=== PATIENT | male | born 1970 | race Hispanic/Latino ===

== ENCOUNTER 2017-11-27 05:30 | Day surgery (SDC) | payer MEDICAID ==
[~2017-11-27] VITALS: Ht 170.2 cm; Wt 67.6 kg
[2017-11-27] MEDS ORDERED: SODIUM CHLORIDE 0.9% 1000ML 1,000 ML IV ONE (06:10)
[2017-11-27] MEDS ORDERED: FOLI1TAB15 PO (06:25)
[2017-11-27] MEDS ORDERED: THIA100T75 PO (06:25)
[2017-11-27] MEDS ORDERED: MIRT30TA6 PO (06:25)
[2017-11-27] MEDS ORDERED: DIVA-78 PO (06:25)
[2017-11-27 06:26] VITALS: BP 103/72
[2017-11-27] MEDS ORDERED: MIDAZOLAM HCL 1 MG/ML 2ML VIAL ONE (06:30)
[2017-11-27] MEDS ORDERED: MEPERIDINE-PF 50 MG/ML SYG ONE (06:30)
[2017-11-27 06:58] VITALS: BP 86/50
[2017-11-27 07:04] VITALS: BP 88/53
[2017-11-27 07:09] VITALS: BP 110/69
[2017-11-27 07:12] VITALS: BP 108/76
[2017-11-27 07:27] VITALS: BP 132/73
== END 2017-11-27 07:29 | disposition home or self-care (01) ==
LOC: DAH 05:30 → ENDO 05:30
PROVIDERS: ATTEND Internal Medicine Gastroenterology
DX: K29.50 Unspecified chronic gastritis without bleeding (principal); B96.81 Helicobacter pylori [H. pylori] as the cause of diseases classified elsewhere; K76.6 Portal hypertension; F32.9 Major depressive disorder, single episode, unspecified; F20.9 Schizophrenia, unspecified; Z79.899 Other long term (current) drug therapy; K70.9 Alcoholic liver disease, unspecified; F10.20 Alcohol dependence, uncomplicated
CPT/HCPCS: 36415; 43239; 88305; 88312; A4606; J2175; J2250; J7030; 99152; 99153

== ENCOUNTER 2021-10-16 20:20 | Inpatient (IN) | payer MEDICAID ==
[~2021-10-16] VITALS: Ht 152.4 cm; Wt 59.1 kg
[~2021-10-16 20:20] MED LIST: DIVA-78 PO; FOLI1TAB15 PO; MIRT-93 PO; THIA100T75 PO
[2021-10-16] MEDS ORDERED: PANTOPRAZOLE 40 MG/VIAL IVP ONE (20:30)
[2021-10-16] MEDS ORDERED: PANTOPRAZOLE 40MG INJ 80 MG in 0.9%NACL 100ML 100 ML IV SCH (20:30)
[2021-10-16] MEDS ORDERED: OCTREOTIDE ACETATE 100 MCG/ML AMP IVP ONE (20:30)
[2021-10-16] MEDS ORDERED: CEFTRIAXONE 1G VIAL 1 GM in 0.9%NACL 50ML 50 ML IV ONE (20:30)
[2021-10-16] MEDS ORDERED: ONDANSETRON 4MG INJ IVP ONE (20:30)
[2021-10-16 21:00] LABS: BASOPHILS % (AUTO) 0.6 % (0.0-5.0); EOSINOPHILS % (AUTO) 0.4 % (0.0-8.0); HEMATOCRIT 28.9 % (42-54); LYMPHOCYTES % (AUTO) 17.8 % (21.0-51.0); MEAN CORPUSCULAR HEMOGLOBIN 34.7 pg (27.0-33.0); MEAN CORPUSCULAR HGB CONC 36.3 g/dL (32.0-36.0); MEAN CORPUSCULAR VOLUME 95.4 fL (79-99); MONOCYTES % (AUTO) 8.3 % (3.0-13.0); NEUTROPHILS % (AUTO) 72.3 % (40.0-77.0); PLATELET COUNT (AUTO) 61 K/uL (130-400); RED BLOOD CELL COUNT(AUTO) 3.03 MIL/uL (4.50-6.20); RED CELL DISTRIBUTION WIDTH 14.6 % (11.0-15.5); WHITE BLOOD COUNT (AUTO) 6.7 K/uL (4.8-10.8)
[2021-10-16] MEDS ORDERED: CEFTRIAXONE 1G VIAL IVP ONE (21:00)
[2021-10-16 21:15] LABS: INR 1.65 (0.85-1.15); PROTHROMBIN TIME 17.2 SEC (9.6-11.6)
[2021-10-16 21:16] LABS: PARTIAL THROMBOPLASTIN TIME 36.7 SEC (26.3-35.5)
[2021-10-16 21:35] LABS: ALBUMIN 2.2 g/dL (3.5-5.0); BILIRUBIN,TOTAL 2.8 mg/dL (0.2-1.0); CREATININE 0.6 mg/dL (0.5-1.5); MAGNESIUM 1.7 mg/dL (1.80-2.40); PHOSPHORUS 1.9 mg/dL (2.5-4.9); TOTAL PROTEIN, SERUM 7.8 g/dL (6.0-8.3)
[2021-10-16] MEDS ORDERED: ONDANSETRON 4MG INJ IV PRN (22:00)
[2021-10-16] MEDS ORDERED: POTASSIUM CHLORIDE 20MEQ/100ML 100 ML IV PRN (22:30)
[2021-10-16] MEDS ORDERED: MAGNESIUM 2GM PREMIX 50ML 50 ML IV PRN (22:30)
[2021-10-16] MEDS ORDERED: LIDOCAINE HCL-MPF 1% 2ML VIAL IV PRN (22:30)
[2021-10-16] MEDS ORDERED: ZOSYN 3.375GM +NS 50ML IV SCH (22:30)
[2021-10-16] MEDS ORDERED: LORAZEPAM 2 MG/ML 1 ML VIAL IVP PRN (22:30)
[2021-10-16] MEDS ORDERED: PHARMACY COMMUNICATION MISC PRN (22:30)
[2021-10-16] MEDS ORDERED: ACAM333T7 PO (22:57)
[2021-10-16] MEDS ORDERED: BUSP10TA3 PO (22:57)
[2021-10-16] MEDS ORDERED: ESCI-8 PO (22:57)
[2021-10-16] MEDS ORDERED: INVEGA IM (22:57)
[2021-10-16] MEDS ORDERED: TRAZ-185 PO (22:57)
[2021-10-17 00:30] VITALS: BP 108/57
[2021-10-17 04:00] VITALS: BP 102/62
[2021-10-17 04:18] LABS: BASOPHILS % (AUTO) 0.5 % (0.0-5.0); EOSINOPHILS % (AUTO) 0.5 % (0.0-8.0); HEMATOCRIT 27.1 % (42-54); LYMPHOCYTES % (AUTO) 16.5 % (21.0-51.0); MEAN CORPUSCULAR HEMOGLOBIN 34.3 pg (27.0-33.0); MEAN CORPUSCULAR HGB CONC 36.2 g/dL (32.0-36.0); MEAN CORPUSCULAR VOLUME 94.8 fL (79-99); MONOCYTES % (AUTO) 9.2 % (3.0-13.0); NEUTROPHILS % (AUTO) 72.6 % (40.0-77.0); PLATELET COUNT (AUTO) 57 K/uL (130-400); RED BLOOD CELL COUNT(AUTO) 2.86 MIL/uL (4.50-6.20); RED CELL DISTRIBUTION WIDTH 14.9 % (11.0-15.5); WHITE BLOOD COUNT (AUTO) 5.8 K/uL (4.8-10.8)
[2021-10-17] MEDS: PANTOPRAZOLE 40MG INJ 80 MG in 0.9%NACL 100ML 100 ML IVP SCH ×2 (04:24→12:00)
[2021-10-17 04:32] LABS: CREATININE 0.6 mg/dL (0.5-1.5); PHOSPHORUS 2.9 mg/dL (2.5-4.9); POTASSIUM 3.3 mmol/L (3.5-5.1)
[2021-10-17] MEDS: POTASSIUM CHLORIDE 10% ELIXIR 20 MEQ/15 ML UDCUP PO PRN (04:37)
[2021-10-17 07:51] VITALS: BP 124/67
[2021-10-17] MEDS ORDERED: PANTOPRAZOLE 40 MG/VIAL IVP SCH (09:00)
[2021-10-17 11:21] VITALS: BP 133/66
[2021-10-17] MEDS ORDERED: COMPOUND IV MISC 1 EACH IVSOLN MISC PRN (12:00)
[2021-10-17 16:11] VITALS: BP 119/54
[2021-10-17] MEDS: M.V.I. IV [ADULT] 10 ML, FOLIC ACID 1 MG, THIAMINE HCL 100 MG in 0.9%NACL 1000ML 1,000 ML IV SCH (18:03)
[2021-10-17 20:00] VITALS: BP 147/80
[2021-10-18] VITALS (21 sets, daily range): BP systolic 102–163; BP diastolic 61–86
[2021-10-18] MEDS: PANTOPRAZOLE 40MG INJ 80 MG in 0.9%NACL 100ML 100 ML IVP SCH ×3 (00:42→23:08)
[2021-10-18] MEDS ORDERED: PROPOFOL 10 MG/ML 20ML VIAL IV ONE (09:14)
[2021-10-18] MEDS: M.V.I. IV [ADULT] 10 ML, FOLIC ACID 1 MG, THIAMINE HCL 100 MG in 0.9%NACL 1000ML 1,000 ML IV SCH (10:17)
[2021-10-18 10:38] LABS: HEMATOCRIT 27.6 % (42-54); MEAN CORPUSCULAR HEMOGLOBIN 35.2 pg (27.0-33.0); MEAN CORPUSCULAR HGB CONC 36.2 g/dL (32.0-36.0); MEAN CORPUSCULAR VOLUME 97.2 fL (79-99); RED BLOOD CELL COUNT(AUTO) 2.84 MIL/uL (4.50-6.20); RED CELL DISTRIBUTION WIDTH 15.1 % (11.0-15.5); WHITE BLOOD COUNT (AUTO) 5.5 K/uL (4.8-10.8)
[2021-10-18 10:46] LABS: CREATININE 0.6 mg/dL (0.5-1.5); POTASSIUM 3.4 mmol/L (3.5-5.1)
[2021-10-18] MEDS ORDERED: KETOROLAC 15MG/ML VIAL (15MG/ML) IM PRN (11:00)
[2021-10-18] MEDS: POTASSIUM CHLORIDE 10% ELIXIR 20 MEQ/15 ML UDCUP PO PRN (11:06)
[2021-10-18] MEDS: CEFTRIAXONE 1G VIAL IVP SCH (11:27)
[2021-10-18] MEDS: OCTREOTIDE ACETATE 1,000 MCG in DEXTROSE 5%-WATER 195 ML IV SCH (16:06)
[2021-10-18] MEDS ORDERED: KETOROLAC 15MG/ML VIAL (15MG/ML) IV PRN (17:00)
[2021-10-18] MEDS: KCL 20 MEQ ERTAB PO PRN (23:07)
[2021-10-19 02:32] VITALS: BP 132/82
[2021-10-19] MEDS: KCL 20 MEQ ERTAB PO PRN (02:44)
[2021-10-19 04:52] LABS: HEMATOCRIT 28.5 % (42-54); MEAN CORPUSCULAR HEMOGLOBIN 34.2 pg (27.0-33.0); MEAN CORPUSCULAR HGB CONC 35.8 g/dL (32.0-36.0); MEAN CORPUSCULAR VOLUME 95.6 fL (79-99); RED BLOOD CELL COUNT(AUTO) 2.98 MIL/uL (4.50-6.20); RED CELL DISTRIBUTION WIDTH 15.1 % (11.0-15.5); WHITE BLOOD COUNT (AUTO) 6.4 K/uL (4.8-10.8)
[2021-10-19 04:58] VITALS: BP 144/71
[2021-10-19 05:08] LABS: CREATININE 0.5 mg/dL (0.5-1.5); POTASSIUM 3.5 mmol/L (3.5-5.1)
[2021-10-19 08:00] VITALS: BP 110/80
[2021-10-19] MEDS: PANTOPRAZOLE 40MG INJ 80 MG in 0.9%NACL 100ML 100 ML IVP SCH ×2 (09:11→19:27)
[2021-10-19] MEDS: CEFTRIAXONE 1G VIAL IVP SCH (10:54)
[2021-10-19 12:00] VITALS: BP 118/63
[2021-10-19] MEDS: OCTREOTIDE ACETATE 1,000 MCG in DEXTROSE 5%-WATER 195 ML IV SCH (15:32)
[2021-10-19 16:00] VITALS: BP 118/71
[2021-10-19 20:51] VITALS: BP 135/85
[2021-10-20 00:07] VITALS: BP 134/76
[2021-10-20 04:10] LABS: HEMATOCRIT 28.5 % (42-54); MEAN CORPUSCULAR HEMOGLOBIN 34.7 pg (27.0-33.0); MEAN CORPUSCULAR HGB CONC 36.1 g/dL (32.0-36.0); NUCLEATED RED BLOOD CELLS 0.3 % (0.0-0.19); RED BLOOD CELL COUNT(AUTO) 2.97 MIL/uL (4.50-6.20); RED CELL DISTRIBUTION WIDTH 14.9 % (11.0-15.5); WHITE BLOOD COUNT (AUTO) 7.3 K/uL (4.8-10.8)
[2021-10-20 04:19] LABS: CREATININE 0.5 mg/dL (0.5-1.5); POTASSIUM 3.5 mmol/L (3.5-5.1)
[2021-10-20 04:29] VITALS: BP 120/67
[2021-10-20 07:00] VITALS: BP 101/56
[2021-10-20] MEDS: PANTOPRAZOLE 40MG INJ 80 MG in 0.9%NACL 100ML 100 ML IVP SCH (07:00)
[2021-10-20] MEDS ORDERED: PANT40TA PO (09:02)
[2021-10-20] MEDS: CEFTRIAXONE 1G VIAL IVP SCH (10:52)
[2021-10-20 11:00] VITALS: BP 123/73
[2021-10-20] MEDS ORDERED: LACTULOSE 20 GM/30 ML UDCUP PO SCH (11:00)
[2021-10-20] MEDS: KCL 20 MEQ ERTAB PO PRN (12:00)
[2021-10-20 13:26] LABS: POTASSIUM TIMED URINE 19.68; URINE K 24HR CALCULATION 8.2
== END 2021-10-20 12:35 | disposition home or self-care (01) | DRG 280 ==
LOC: EDH 20:20 → EDHIP 20:21 → UNDOADMIN 21:56 → 4DH 23:45 → 4BH 10-19 17:37
PROVIDERS: ADMIT Internal Medicine; ATTEND Internal Medicine
PROC: 06L38CZ Occlusion of Esophageal Vein with Extraluminal Device, Via Natural or Artificial Opening Endoscopic (ICD-10-PCS; principal; 2021-10-18)
DX: K70.31 Alcoholic cirrhosis of liver with ascites (principal); I85.11 Secondary esophageal varices with bleeding; E43 Unspecified severe protein-calorie malnutrition; D69.6 Thrombocytopenia, unspecified; E83.51 Hypocalcemia; E87.1 Hypo-osmolality and hyponatremia; D62 Acute posthemorrhagic anemia; K76.6 Portal hypertension; I85.10 Secondary esophageal varices without bleeding; E83.42 Hypomagnesemia; R65.10 Systemic inflammatory response syndrome (SIRS) of non-infectious origin without acute organ dysfunction; E87.6 Hypokalemia; D64.9 Anemia, unspecified; Y90.6 Blood alcohol level of 120-199 mg/100 ml; Z68.25 Body mass index [BMI] 25.0-25.9, adult; F17.210 Nicotine dependence, cigarettes, uncomplicated; F12.90 Cannabis use, unspecified, uncomplicated; I10 Essential (primary) hypertension; F20.9 Schizophrenia, unspecified; K44.9 Diaphragmatic hernia without obstruction or gangrene; K31.89 Other diseases of stomach and duodenum; K02.9 Dental caries, unspecified; E11.9 Type 2 diabetes mellitus without complications; K21.9 Gastro-esophageal reflux disease without esophagitis; Z83.3 Family history of diabetes mellitus; Z80.1 Family history of malignant neoplasm of trachea, bronchus and lung; Z82.49 Family history of ischemic heart disease and other diseases of the circulatory system
CPT/HCPCS: 36415; 43244; 71045; 76705; 80048; 80053; 82140; 82270; 82340; 82550; 82607; 83605; 83735; 83880; 84100; 84156; 84166; 84484; 85025; 85027; 85610; 85730; 86325; 86850; 86900; 86901; 87040; 87635; 93005; 99291; C9113; G0378; J0696; J1885; J2354; J2405; J2543; J2704; J3411; J3475; J3480; J3490; J7030; J7060

== ENCOUNTER 2022-12-04 04:27 | Observation (INO) | payer MEDICAID ==
[2022-12-04] MEDS ORDERED: 0.9%NACL 1000ML 1,000 ML IV SCH (05:00)
[2022-12-04 05:10] LABS: BASOPHILS % (AUTO) 0.9 % (0.0-5.0); EOSINOPHILS % (AUTO) 3.4 % (0.0-8.0); HEMATOCRIT 35.1 % (42-54); LYMPHOCYTES % (AUTO) 29.8 % (21.0-51.0); MEAN CORPUSCULAR HEMOGLOBIN 35.7 pg (27.0-33.0); MEAN CORPUSCULAR HGB CONC 37.9 g/dL (32.0-36.0); MEAN CORPUSCULAR VOLUME 94.1 fL (79-99); MONOCYTES % (AUTO) 8.9 % (3.0-13.0); NEUTROPHILS % (AUTO) 56.8 % (40.0-77.0); PLATELET COUNT (AUTO) 94 K/uL (130-400); RED BLOOD CELL COUNT(AUTO) 3.73 MIL/uL (4.50-6.20); RED CELL DISTRIBUTION WIDTH 16.7 % (11.0-15.5); WHITE BLOOD COUNT (AUTO) 4.5 K/uL (4.8-10.8)
[2022-12-04 05:11] LABS: APPEARANCE,URINE CLEAR (CLEAR); BILIRUBIN,URINE NEGATIVE (NEGATIVE); COLOR,URINE LIGHT-YELLOW (YELLOW); GLUCOSE, URINE (UA) 150 mg/dL (NEGATIVE); KETONES,URINE NEGATIVE (NEGATIVE); LEUKOCYTE ESTERASE ,URINE 25 Leu/uL (NEGATIVE); NITRATE,URINE NEGATIVE (NEGATIVE); OCCULT BLOOD,URINE NEGATIVE (NEGATIVE); PROTEIN,URINE NEGATIVE (NEGATIVE); UROBILINOGEN,URINE 0.2 mg/dL (0.2-1.0)
[2022-12-04 05:15] LABS: BACTERIA,URINE MOD /HPF (None Seen); MUCUS,URINE RARE LPF (None Seen); RBC,URINE 0-1 /HPF (0-1)
[2022-12-04 05:28] LABS: ALBUMIN 3.1 g/dL (3.5-5.0); CREATININE 0.9 mg/dL (0.5-1.5); POTASSIUM 3.7 mmol/L (3.5-5.1); TOTAL PROTEIN, SERUM 8.2 g/dL (6.0-8.3)
[2022-12-04 05:38] LABS: B-TYPE NATRIURETIC PEPTIDE < 5 pg/mL (0-100)
[2022-12-04 06:34] LABS: AMPHET/METH SCREEN,URINE NEGATIVE (NEGATIVE); BARBITURATE SCREEN, URINE NEGATIVE (NEGATIVE); BENZODIAZEPINES SCREEN,URINE NEGATIVE (NEGATIVE); CANNABINOID SCREEN,URINE NEGATIVE (NEGATIVE); COCAINE SCREEN,URINE NEGATIVE (NEGATIVE); OPIATE SCREEN,URINE NEGATIVE (NEGATIVE); PHENCYCLIDINE SCREEN,URINE NEGATIVE (NEGATIVE)
[2022-12-04 07:39] LABS: APPEARANCE,URINE CLEAR (CLEAR); BILIRUBIN,URINE NEGATIVE (NEGATIVE); COLOR,URINE LIGHT-YELLOW (YELLOW); GLUCOSE, URINE (UA) 150 mg/dL (NEGATIVE); KETONES,URINE NEGATIVE (NEGATIVE); LEUKOCYTE ESTERASE ,URINE 25 Leu/uL (NEGATIVE); NITRATE,URINE 2+ (NEGATIVE); OCCULT BLOOD,URINE NEGATIVE (NEGATIVE); PROTEIN,URINE NEGATIVE (NEGATIVE); UROBILINOGEN,URINE 0.2 mg/dL (0.2-1.0)
[2022-12-04 07:52] LABS: BACTERIA,URINE MANY /HPF (None Seen); MUCUS,URINE RARE LPF (None Seen); RBC,URINE 0-1 /HPF (0-1)
[2022-12-04] MEDS ORDERED: ONDANSETRON 4MG INJ IVP PRN (08:00)
[2022-12-04] MEDS ORDERED: MAGNESIUM 2GM PREMIX 50ML 50 ML IV PRN (08:00)
[2022-12-04] MEDS ORDERED: POTASSIUM CHLORIDE 10% ELIXIR 20 MEQ/15 ML UDCUP PO PRN (08:00)
[2022-12-04] MEDS ORDERED: GLUCAGON 1MG KIT 1 MG ML IM PRN (08:00)
[2022-12-04] MEDS ORDERED: DEXTROSE 50%-WATER 50 ML DISP.SYRIN IV PRN (08:00)
[2022-12-04] MEDS ORDERED: LACTULOSE 20 GM/30 ML UDCUP PO PRN (08:00)
[2022-12-04] MEDS ORDERED: POTASSIUM CHLORIDE 20MEQ/100ML 100 ML IV PRN (08:00)
[2022-12-04] MEDS: PANTOPRAZOLE 40 MG TAB DR PO SCH ×2 (09:17→21:22)
[2022-12-04] MEDS: ACETAMINOPHEN 325 MG TAB PO PRN (09:18)
[2022-12-04] MEDS: INSULIN HUMULIN R 100 UNIT/ML 3ML SQ SCH ×3 (11:30→21:00)
[2022-12-04 17:46] LABS: HEMOGLOBIN A1C 6.6 % (4.0-6.0)
[2022-12-04 17:48] VITALS: BP 147/73
[2022-12-04] MEDS ORDERED: CARB15DR OP (19:23)
[2022-12-04] MEDS ORDERED: MEDR2.5T PO (19:23)
[2022-12-04] MEDS ORDERED: SPIR50TA5 PO (19:23)
[2022-12-04] MEDS ORDERED: LACT10SO95 PO (19:23)
[2022-12-04] MEDS ORDERED: TRAZ-185 PO (19:23)
[2022-12-04] MEDS ORDERED: ESCI20TA38 PO (19:23)
[2022-12-04] MEDS ORDERED: PERIDEX MM (19:23)
[2022-12-04 20:43] VITALS: BP 142/75
[2022-12-05] VITALS (7 sets, daily range): BP systolic 104–137; BP diastolic 53–73
[2022-12-05 05:20] LABS: BASOPHILS % (AUTO) 0.9 % (0.0-5.0); EOSINOPHILS % (AUTO) 3.8 % (0.0-8.0); HEMATOCRIT 36.5 % (42-54); LYMPHOCYTES % (AUTO) 40.8 % (21.0-51.0); MEAN CORPUSCULAR HEMOGLOBIN 32.4 pg (27.0-33.0); MEAN CORPUSCULAR HGB CONC 35.3 g/dL (32.0-36.0); MEAN CORPUSCULAR VOLUME 91.7 fL (79-99); MONOCYTES % (AUTO) 9.1 % (3.0-13.0); NEUTROPHILS % (AUTO) 45.2 % (40.0-77.0); PLATELET COUNT (AUTO) 111 K/uL (130-400); RED BLOOD CELL COUNT(AUTO) 3.98 MIL/uL (4.50-6.20); RED CELL DISTRIBUTION WIDTH 16.8 % (11.0-15.5); WHITE BLOOD COUNT (AUTO) 4.5 K/uL (4.8-10.8)
[2022-12-05 05:36] LABS: BILIRUBIN,DIRECT 0.9 mg/dL (0.0-0.3); CREATININE 0.9 mg/dL (0.5-1.5); POTASSIUM 3.7 mmol/L (3.5-5.1); TOTAL PROTEIN, SERUM 7.7 g/dL (6.0-8.3)
[2022-12-05] MEDS: INSULIN HUMULIN R 100 UNIT/ML 3ML SQ SCH ×4 (06:32→21:00)
[2022-12-05] MEDS: PANTOPRAZOLE 40 MG TAB DR PO SCH ×2 (08:55→21:32)
[2022-12-05] MEDS: ACETAMINOPHEN 325 MG TAB PO PRN (15:54)
[2022-12-06 04:23] LABS: BASOPHILS % (AUTO) 0.7 % (0.0-5.0); EOSINOPHILS % (AUTO) 3.9 % (0.0-8.0); HEMATOCRIT 36.1 % (42-54); LYMPHOCYTES % (AUTO) 37.7 % (21.0-51.0); MEAN CORPUSCULAR HEMOGLOBIN 32.5 pg (27.0-33.0); MEAN CORPUSCULAR HGB CONC 34.6 g/dL (32.0-36.0); MEAN CORPUSCULAR VOLUME 93.8 fL (79-99); MONOCYTES % (AUTO) 9.8 % (3.0-13.0); NEUTROPHILS % (AUTO) 47.7 % (40.0-77.0); PLATELET COUNT (AUTO) 90 K/uL (130-400); RED BLOOD CELL COUNT(AUTO) 3.85 MIL/uL (4.50-6.20); RED CELL DISTRIBUTION WIDTH 16.4 % (11.0-15.5); WHITE BLOOD COUNT (AUTO) 4.1 K/uL (4.8-10.8)
[2022-12-06 04:44] VITALS: BP 124/74
[2022-12-06 04:49] LABS: ALBUMIN 2.9 g/dL (3.5-5.0); CREATININE 1.1 mg/dL (0.5-1.5); POTASSIUM 3.5 mmol/L (3.5-5.1); TOTAL PROTEIN, SERUM 7.4 g/dL (6.0-8.3)
[2022-12-06] MEDS: INSULIN HUMULIN R 100 UNIT/ML 3ML SQ SCH ×3 (06:24→16:30)
[2022-12-06] MEDS: KCL 20 MEQ ERTAB PO PRN ×2 (07:57→13:07)
[2022-12-06] MEDS: PANTOPRAZOLE 40 MG TAB DR PO SCH (07:57)
[2022-12-06 08:43] VITALS: BP 112/65
[2022-12-06] MEDS ORDERED: CEPHALEXIN 500 MG CAPSULE PO SCH ×2 (11:00)
[2022-12-06 12:02] VITALS: BP 111/68
[2022-12-06] MEDS ORDERED: LACTULOSE 20 GM/30 ML UDCUP PO SCH (14:00)
[2022-12-06 16:00] VITALS: BP 109/67
== END 2022-12-06 17:05 ==
LOC: EDH 04:27 → INTOOBSV 04:28 → EDHIP 04:28 → 3DH 17:42
PROVIDERS: ADMIT Hospitalist; ATTEND Hospitalist
DX: G93.41 Metabolic encephalopathy (principal); K76.82 Hepatic encephalopathy; I85.00 Esophageal varices without bleeding; E44.1 Mild protein-calorie malnutrition; K70.30 Alcoholic cirrhosis of liver without ascites; E11.65 Type 2 diabetes mellitus with hyperglycemia; I10 Essential (primary) hypertension; F20.9 Schizophrenia, unspecified; E87.1 Hypo-osmolality and hyponatremia; E72.20 Disorder of urea cycle metabolism, unspecified; F20.0 Paranoid schizophrenia; F10.10 Alcohol abuse, uncomplicated; N39.0 Urinary tract infection, site not specified; B96.20 Unspecified Escherichia coli [E. coli] as the cause of diseases classified elsewhere; K76.6 Portal hypertension; Z68.26 Body mass index [BMI] 26.0-26.9, adult; Z86.19 Personal history of other infectious and parasitic diseases; Z79.899 Other long term (current) drug therapy; Z98.890 Other specified postprocedural states
CPT/HCPCS: 99285; 83036; 82150; 82550; 84484; 80053 ×2; 83880; 80305; 82140 ×3; 85025 ×3; 87077; 87088; 87186; 82948 ×2; 87797; 87486; 81001 ×2; 36415 ×3; 71045; 70450; 93005; 80076; 80048; G0378 ×6

== ENCOUNTER 2024-03-31 10:19 | Inpatient (IN) | payer MEDICAID ==
[2024-03-31] VITALS (12 sets, daily range): BP systolic 98–111; BP diastolic 60–69; PULSE 77–88; RESP 9–20; TEMP 98.5–98.7; O2SAT 100
[~2024-03-31] VITALS: Ht 167.6 cm; Wt 78.2 kg
[~2024-03-31 10:19] MED LIST changes: +CARB15DR OP; -DIVA-78 PO; +ESCI20TA38 PO; -FOLI1TAB15 PO; +MEDR2.5T PO; -MIRT-93 PO; +PERIDEX MM; +SPIR50TA5 PO; -THIA100T75 PO; +TRAZ-185 PO
[2024-03-31 10:42] LABS: BASOPHILS # (AUTO) 0.03 K/uL (0.00-0.20); BASOPHILS % (AUTO) 0.6 % (0.0-5.0); EOSINOPHILS # (AUTO) 0.12 K/uL (0.00-0.70); EOSINOPHILS % (AUTO) 2.6 % (0.0-8.0); HEMATOCRIT 30.8 % (42-54); IMMATURE GRANULOCYTE ABSOLUTE 0.02 K/uL (0-1); LYMPHOCYTES # (AUTO) 1.3 K/uL (1.0-4.8); LYMPHOCYTES % (AUTO) 26.9 % (21.0-51.0); MEAN CORPUSCULAR HGB CONC 27.3 g/dL (32.0-36.0); MONOCYTES # (AUTO) 0.3 K/uL (0.1-1.0); MONOCYTES % (AUTO) 6.8 % (3.0-13.0); NEUTROPHILS # (AUTO) 2.9 K/uL (1.8-7.7); NEUTROPHILS % (AUTO) 62.7 % (40.0-77.0); PLATELET COUNT (AUTO) 113 K/uL (130-400); RED BLOOD CELL COUNT(AUTO) 4.67 MIL/uL (4.50-6.20); RED CELL DISTRIBUTION WIDTH 22.2 % (11.0-15.5); WHITE BLOOD COUNT (AUTO) 4.7 K/uL (4.8-10.8)
[2024-03-31 10:51] LABS: POTASSIUM 3.8 mmol/L (3.5-5.1)
[2024-03-31 10:55] LABS: ALBUMIN 3.2 g/dL (3.5-5.0); BILIRUBIN,TOTAL 1.2 mg/dL (0.2-1.0); TOTAL PROTEIN, SERUM 7.6 g/dL (6.0-8.3)
[2024-03-31] MEDS: 0.9% NACL 250ML 250 ML IV ONE (11:00)
[2024-03-31] MEDS: 0.9%NACL 1000ML 2,000 ML IV ONE (11:02)
[2024-03-31] MEDS: ZOSYN 3.375GM +NS 50ML IV ONE (11:36)
[2024-03-31 12:01] LABS: COVID19 (SARS ANTIGEN RAPID) PRESUMPTIVE NEGATIVE (NEGATIVE); INFLUENZA TYPE A Negative For Type A (NEGATIVE); INFLUENZA TYPE B Negative For Type B (NEGATIVE)
[2024-03-31] MEDS: 0.9% NACL 500ML IV.SOLN 500 ML IV ONE (12:01)
[2024-03-31] MEDS ORDERED: ONDANSETRON 4MG INJ IVP PRN (16:00)
[2024-03-31] MEDS ORDERED: acetaMINOPHEN 325 MG TAB PO PRN (16:00)
[2024-03-31] MEDS: ZOSYN 3.375GM +NS 50ML IV SCH (16:00)
[2024-03-31] MEDS: NOREPINEPHRIN 4MG/NS 250ML 250 ML IV SCH (16:08)
[2024-03-31] MEDS: PANTOPRAZOLE 40MG INJ 80 MG in 0.9%NACL 100ML 100 ML IVP SCH (16:49)
[2024-03-31] MEDS: octREOtide aceTATe 1,250 MCG in 0.9% NACL 250ML 250 ML IV SCH (16:51)
[2024-03-31 17:11] LABS: APPEARANCE,URINE CLEAR (CLEAR); BILIRUBIN,URINE NEGATIVE (NEGATIVE); COLOR,URINE YELLOW (YELLOW); GLUCOSE, URINE (UA) TRACE mg/dL (NEGATIVE); KETONES,URINE 5 mg/dL (NEGATIVE); LEUKOCYTE ESTERASE ,URINE NEGATIVE Leu/uL (NEGATIVE); NITRATE,URINE NEGATIVE (NEGATIVE); OCCULT BLOOD,URINE NEGATIVE (NEGATIVE); PH,URINE 5.5 (5.0-8.0); PROTEIN,URINE 10 mg/dL (NEGATIVE); UROBILINOGEN,URINE 0.2 mg/dL (0.2-1.0)
[2024-03-31 17:13] LABS: ADD UA MICROSCOPIC YES
[2024-03-31] MEDS: NEOMYCIN SULFATE 500 MG TAB PO SCH (20:00)
[2024-03-31] MEDS: rispERIdone 1 MG TABLET PO SCH (20:06)
[2024-03-31] MEDS: RIFAXIMIN 550 MG TABLET PO SCH (20:06)
[2024-03-31] MEDS: trAZOdone HCL 100 MG TABLET PO SCH (20:06)
[2024-03-31] MEDS: LACTULOSE 20 GM/30 ML UDCUP PO SCH (20:06)
[2024-03-31] MEDS: HALOPERIDOL 5 MG TABLET PO SCH (20:06)
[2024-03-31] MEDS: INSULIN humuLIN R 100 UNIT/ML 3ML SQ SCH (20:11)
[2024-03-31] MEDS ORDERED: miDODRine HCL 5 MG TABLET PO SCH (21:00)
[2024-04-01] VITALS (76 sets, daily range): BP systolic 81–145; BP diastolic 43–89; PULSE 73–113; RESP 8–23; TEMP 97.3–99; O2SAT 94–100
[2024-04-01 01:15] LABS: AMPHET/METH SCREEN,URINE NEGATIVE (NEGATIVE); BARBITURATE SCREEN, URINE NEGATIVE (NEGATIVE); BENZODIAZEPINES SCREEN,URINE NEGATIVE (NEGATIVE); CANNABINOID SCREEN,URINE NEGATIVE (NEGATIVE); COCAINE SCREEN,URINE NEGATIVE (NEGATIVE); OPIATE SCREEN,URINE NEGATIVE (NEGATIVE); PHENCYCLIDINE SCREEN,URINE NEGATIVE (NEGATIVE)
[2024-04-01 04:51] LABS: BASOPHILS # (AUTO) 0.03 K/uL (0.00-0.20); EOSINOPHILS # (AUTO) 0.18 K/uL (0.00-0.70); EOSINOPHILS % (AUTO) 5.9 % (0.0-8.0); HEMATOCRIT 21.9 % (42-54); IMMATURE GRANULOCYTE ABSOLUTE 0.01 K/uL (0-1); LYMPHOCYTES # (AUTO) 0.9 K/uL (1.0-4.8); LYMPHOCYTES % (AUTO) 30.2 % (21.0-51.0); MEAN CORPUSCULAR HEMOGLOBIN 17.7 pg (27.0-33.0); MEAN CORPUSCULAR HGB CONC 26.9 g/dL (32.0-36.0); MEAN CORPUSCULAR VOLUME 65.8 fL (79-99); MONOCYTES # (AUTO) 0.2 K/uL (0.1-1.0); MONOCYTES % (AUTO) 6.2 % (3.0-13.0); NEUTROPHILS # (AUTO) 1.7 K/uL (1.8-7.7); NEUTROPHILS % (AUTO) 56.4 % (40.0-77.0); PLATELET COUNT (AUTO) 81 K/uL (130-400); RED BLOOD CELL COUNT(AUTO) 3.33 MIL/uL (4.50-6.20); RED CELL DISTRIBUTION WIDTH 21.9 % (11.0-15.5); WHITE BLOOD COUNT (AUTO) 3.1 K/uL (4.8-10.8)
[2024-04-01 04:59] LABS: ALBUMIN 2.6 g/dL (3.5-5.0); BILIRUBIN,TOTAL 1.3 mg/dL (0.2-1.0); CREATININE 0.9 mg/dL (0.5-1.3); MAGNESIUM 1.5 mg/dL (1.80-2.40); POTASSIUM 3.6 mmol/L (3.5-5.1)
[2024-04-01] MEDS: MAGNESIUM 2GM PREMIX 50ML 50 ML IV PRN (05:18)
[2024-04-01 06:36] LABS: HEMATOCRIT 23.1 % (42-54)
[2024-04-01] MEDS ORDERED: GABA-529 PO (08:49)
[2024-04-01] MEDS ORDERED: TRAZ150T79 PO (08:49)
[2024-04-01] MEDS ORDERED: LEVE250T2 PO (08:49)
[2024-04-01] MEDS ORDERED: RISP-30 PO (08:49)
[2024-04-01] MEDS ORDERED: THIA500T3 PO (08:49)
[2024-04-01] MEDS ORDERED: MELA3CAP2 PO (08:49)
[2024-04-01] MEDS ORDERED: INSLAN SQ (08:49)
[2024-04-01] MEDS ORDERED: METF-444 PO (08:49)
[2024-04-01] MEDS ORDERED: MIDO5TAB4 PO (08:49)
[2024-04-01] MEDS ORDERED: RIFA550T PO (08:49)
[2024-04-01] MEDS ORDERED: HALO5TAB PO (08:49)
[2024-04-01] MEDS ORDERED: BENZ1TAB83 PO (08:49)
[2024-04-01] MEDS ORDERED: FOLI0.8T53 PO (08:49)
[2024-04-01 10:31] LABS: INR 1.45 (0.85-1.15); PROTHROMBIN TIME 15.2 SEC (9.6-11.6)
[2024-04-01 10:32] LABS: PARTIAL THROMBOPLASTIN TIME 27.4 SEC (26.3-35.5)
[2024-04-01 10:48] LABS: % IRON SATURATION 2.6 % (30-44)
[2024-04-01] MEDS ORDERED: COMPOUND IV REFRIGERATED 1 EACH IVSOLN MISC PRN (12:00)
[2024-04-01] MEDS: miDODRine HCL 5 MG TABLET PO SCH (13:49)
[2024-04-01] MEDS ORDERED: MAGNESIUM 2GM PREMIX 50ML 50 ML IV SCH (14:00)
[2024-04-01 15:14] LABS: HEMATOCRIT 28.4 % (42-54)
[2024-04-01] MEDS ORDERED: COMPOUND IV MISC 1 EACH IVSOLN MISC PRN (17:00)
[2024-04-01] MEDS: IRON sUCROse COMPLEX 300 MG in 0.9% NACL 250ML 250 ML IV SCH (18:43)
[2024-04-01] MEDS: POTASSIUM CHLORIDE 20MEQ/100ML 100 ML IV PRN (19:30)
[2024-04-01 21:08] LABS: HEMATOCRIT 30.8 % (42-54)
[2024-04-02] VITALS (32 sets, daily range): BP systolic 83–124; BP diastolic 49–91; PULSE 67–88; RESP 11–28; TEMP 97.7–98.6; O2SAT 90–95
[2024-04-02 05:18] LABS: BASOPHILS # (AUTO) 0.03 K/uL (0.00-0.20); BASOPHILS % (AUTO) 0.9 % (0.0-5.0); EOSINOPHILS % (AUTO) 6.1 % (0.0-8.0); HEMATOCRIT 27.4 % (42-54); IMMATURE GRANULOCYTE ABSOLUTE 0.01 K/uL (0-1); LYMPHOCYTES # (AUTO) 0.6 K/uL (1.0-4.8); LYMPHOCYTES % (AUTO) 17.5 % (21.0-51.0); MEAN CORPUSCULAR HEMOGLOBIN 20.5 pg (27.0-33.0); MEAN CORPUSCULAR HGB CONC 28.8 g/dL (32.0-36.0); MONOCYTES # (AUTO) 0.3 K/uL (0.1-1.0); MONOCYTES % (AUTO) 7.7 % (3.0-13.0); NEUTROPHILS # (AUTO) 2.2 K/uL (1.8-7.7); NEUTROPHILS % (AUTO) 67.5 % (40.0-77.0); PLATELET COUNT (AUTO) 79 K/uL (130-400); RED BLOOD CELL COUNT(AUTO) 3.86 MIL/uL (4.50-6.20); RED CELL DISTRIBUTION WIDTH 25.2 % (11.0-15.5); WHITE BLOOD COUNT (AUTO) 3.3 K/uL (4.8-10.8)
[2024-04-02 06:05] LABS: ALBUMIN 2.6 g/dL (3.5-5.0); BILIRUBIN,TOTAL 3.2 mg/dL (0.2-1.0); CREATININE 0.9 mg/dL (0.5-1.3); MAGNESIUM 1.9 mg/dL (1.80-2.40); POTASSIUM 3.6 mmol/L (3.5-5.1); TOTAL PROTEIN, SERUM 6.1 g/dL (6.0-8.3)
[2024-04-02 09:30] LABS: HEMATOCRIT 28.2 % (42-54)
[2024-04-02] MEDS ORDERED: proPOFol 10 MG/ML 20ML VIAL IV ONE (12:22)
[2024-04-02] MEDS: GABApentin 100 MG CAPSULE PO SCH (14:09)
[2024-04-02] MEDS ORDERED: SODIUM CHLORIDE IV SCH (17:00)
[2024-04-02] MEDS ORDERED: OCTREOTIDE ACETATE IV SCH (17:00)
[2024-04-02] MEDS ORDERED: NON-FORMULARY MEDICATION 1 EACH (Trazodone HCl 150 MG) PO SCH (21:00)
[2024-04-02] MEDS: MELATONIN 3 MG PO SCH (21:00)
[2024-04-02] MEDS: leveTIRACEtam 250 MG TABLET PO SCH (21:34)
[2024-04-02] MEDS: BENZTROPINE 0.5MG TAB PO SCH (21:35)
[2024-04-02] MEDS: PANTOPRAZOLE 40 MG/VIAL IVP SCH (21:35)
[2024-04-03] VITALS (7 sets, daily range): BP systolic 99–198; BP diastolic 44–80; PULSE 70–79; RESP 18–20; TEMP 97.5–98.5; O2SAT 93–94
[2024-04-03 06:12] LABS: ALBUMIN 2.6 g/dL (3.5-5.0); BILIRUBIN,TOTAL 1.8 mg/dL (0.2-1.0); CREATININE 0.9 mg/dL (0.5-1.3); MAGNESIUM 1.6 mg/dL (1.80-2.40); POTASSIUM 3.3 mmol/L (3.5-5.1); THYROID STIMULATING HORMONE 0.66 uIU/mL (0.36-3.74); TOTAL PROTEIN, SERUM 6.1 g/dL (6.0-8.3)
[2024-04-03 06:22] LABS: BASOPHILS # (AUTO) 0.02 K/uL (0.00-0.20); BASOPHILS % (AUTO) 0.6 % (0.0-5.0); EOSINOPHILS # (AUTO) 0.17 K/uL (0.00-0.70); EOSINOPHILS % (AUTO) 4.7 % (0.0-8.0); HEMATOCRIT 28.2 % (42-54); IMMATURE GRANULOCYTE ABSOLUTE 0.01 K/uL (0-1); LYMPHOCYTES # (AUTO) 0.7 K/uL (1.0-4.8); LYMPHOCYTES % (AUTO) 18.1 % (21.0-51.0); MEAN CORPUSCULAR HEMOGLOBIN 20.5 pg (27.0-33.0); MEAN CORPUSCULAR HGB CONC 28.4 g/dL (32.0-36.0); MEAN CORPUSCULAR VOLUME 72.1 fL (79-99); MONOCYTES # (AUTO) 0.3 K/uL (0.1-1.0); MONOCYTES % (AUTO) 6.9 % (3.0-13.0); NEUTROPHILS # (AUTO) 2.5 K/uL (1.8-7.7); NEUTROPHILS % (AUTO) 69.4 % (40.0-77.0); PLATELET COUNT (AUTO) 71 K/uL (130-400); RED BLOOD CELL COUNT(AUTO) 3.91 MIL/uL (4.50-6.20); RED CELL DISTRIBUTION WIDTH 26.1 % (11.0-15.5); WHITE BLOOD COUNT (AUTO) 3.6 K/uL (4.8-10.8)
[2024-04-03 07:10] LABS: HEMOGLOBIN A1C 5.9 % (4.0-6.0)
[2024-04-03] MEDS: Vitamin B Complex/Vit C/Folic Acid PO SCH (08:08)
[2024-04-03] MEDS: THIAMINE HCL 100 MG TABLET PO SCH (08:08)
[2024-04-03] MEDS: LACTULOSE 20 GM/30 ML UDCUP PO SCH (11:27)
[2024-04-03] MEDS: LACTULOSE 20 GM/30 ML UDCUP PR ONE (17:01)
[2024-04-04] VITALS (7 sets, daily range): BP systolic 98–111; BP diastolic 62–70; PULSE 72–79; RESP 16–20; TEMP 98.2–98.6; O2SAT 93
[2024-04-04 04:26] LABS: BASOPHILS # (AUTO) 0.02 K/uL (0.00-0.20); BASOPHILS % (AUTO) 0.7 % (0.0-5.0); EOSINOPHILS # (AUTO) 0.13 K/uL (0.00-0.70); EOSINOPHILS % (AUTO) 4.4 % (0.0-8.0); HEMATOCRIT 28.1 % (42-54); IMMATURE GRANULOCYTE ABSOLUTE 0.01 K/uL (0-1); LYMPHOCYTES # (AUTO) 0.6 K/uL (1.0-4.8); LYMPHOCYTES % (AUTO) 19.8 % (21.0-51.0); MEAN CORPUSCULAR HEMOGLOBIN 21.2 pg (27.0-33.0); MEAN CORPUSCULAR HGB CONC 29.2 g/dL (32.0-36.0); MEAN CORPUSCULAR VOLUME 72.6 fL (79-99); MONOCYTES # (AUTO) 0.2 K/uL (0.1-1.0); MONOCYTES % (AUTO) 8.2 % (3.0-13.0); NEUTROPHILS % (AUTO) 66.6 % (40.0-77.0); PLATELET COUNT (AUTO) 56 K/uL (130-400); RED BLOOD CELL COUNT(AUTO) 3.87 MIL/uL (4.50-6.20); RED CELL DISTRIBUTION WIDTH 26.5 % (11.0-15.5); WHITE BLOOD COUNT (AUTO) 2.9 K/uL (4.8-10.8)
[2024-04-04 04:32] LABS: CREATININE 0.8 mg/dL (0.5-1.3); POTASSIUM 3.1 mmol/L (3.5-5.1)
[2024-04-04 05:12] LABS: EOSINOPHILS % (MANUAL) 1 % (1-6); LYMPHOCYTES % (MANUAL) 27 % (22-44); MAN.DIFF COMMENT-IMPRESSION MANUAL DIFFERENTIAL; METAMYELOCYTES % 1 % (0-0); REACTIVE LYMPHOCYTES 1 % (0-0); SEGMENTED NEUTROPHILS % 70 % (40-70); TOTAL CELLS COUNTED 100
[2024-04-04 05:13] LABS: PLATELET MORPHOLOGY COMMENT SLIGHTLY DECREASED; WBC MORPHOLOGY HYPERSEGMENT NEUT 1+
[2024-04-05] VITALS: BP 106/68; PULSE 80; RESP 16; TEMP 98.7
== END 2024-04-05 01:00 | DRG 720 ==
LOC: EDH 10:19 → EDHIP 10:20 → 2CH 21:27 → 3AH 04-02 17:10
PROVIDERS: ADMIT Hospitalist; ATTEND Hospitalist
PROC: 30233N1 Transfusion of Nonautologous Red Blood Cells into Peripheral Vein, Percutaneous Approach (ICD-10-PCS; 2024-04-01)
PROC: 0DJ08ZZ Inspection of Upper Intestinal Tract, Via Natural or Artificial Opening Endoscopic (ICD-10-PCS; principal; 2024-04-02)
DX: A41.9 Sepsis, unspecified organism (principal); R65.21 Severe sepsis with septic shock; I85.01 Esophageal varices with bleeding; J18.9 Pneumonia, unspecified organism; E44.0 Moderate protein-calorie malnutrition; D69.6 Thrombocytopenia, unspecified; K76.82 Hepatic encephalopathy; D62 Acute posthemorrhagic anemia; K76.6 Portal hypertension; K92.0 Hematemesis; F20.9 Schizophrenia, unspecified; Z66 Do not resuscitate; K31.89 Other diseases of stomach and duodenum; F41.9 Anxiety disorder, unspecified; E11.65 Type 2 diabetes mellitus with hyperglycemia; I10 Essential (primary) hypertension; K21.9 Gastro-esophageal reflux disease without esophagitis; Z20.822 Contact with and (suspected) exposure to COVID-19; K59.00 Constipation, unspecified; K74.60 Unspecified cirrhosis of liver; Z68.27 Body mass index [BMI] 27.0-27.9, adult; Z79.899 Other long term (current) drug therapy; Z79.84 Long term (current) use of oral hypoglycemic drugs
CPT/HCPCS: 36415; 43244; 71045; 74176; 80048; 80053; 80305; 81001; 82140; 82533; 82728; 82948; 83036; 83540; 83550; 83605; 83735; 84145; 84443; 84484; 85014; 85018; 85025; 85610; 85730; 86850; 86900; 86901; 86923; 87040; 87426; 87804; 87880; 93005; 99291; A4606; G0378; J1756; J1815; J2354; J2470; J2543; J2704; J3475; J3480; J3490; J7030; J7050; P9016; A4215; A4216; A4221; A4222; A4223; A4620; A4663; A7002

== ENCOUNTER 2024-05-05 06:35 | Day surgery (SDC) | payer MEDICAID ==
[2024-05-05] VITALS (10 sets, daily range): BP systolic 81–113; BP diastolic 53–74; PULSE 59–73; RESP 13–20; TEMP 96.6–97.9
[~2024-05-05] VITALS: Ht 162.6 cm; Wt 74.8 kg
[~2024-05-05 06:35] MED LIST changes: +BENZ1TAB83 PO; -CARB15DR OP; -ESCI20TA38 PO; +FOLI0.8T53 PO; +GABA-529 PO; +HALO5TAB PO; +INSLAN SQ; +LEVE250T2 PO; -MEDR2.5T PO; +MELA3CAP2 PO; +METF-444 PO; +MIDO5TAB4 PO; -PERIDEX MM; +RIFA550T PO; +RISP-30 PO; -SPIR50TA5 PO; +THIA500T3 PO; -TRAZ-185 PO; +TRAZ150T79 PO
[2024-05-05] MEDS ORDERED: BENZ1TAB83 PO (07:35)
[2024-05-05] MEDS ORDERED: LACT10SO9 PO (07:38)
[2024-05-05] MEDS ORDERED: FOLI0.8T53 PO (07:38)
[2024-05-05] MEDS ORDERED: RIFA550T PO (07:40)
[2024-05-05] MEDS: 0.9%NACL 1000ML 1,000 ML IV ONE (07:40)
[2024-05-05] MEDS ORDERED: proPOFol 10 MG/ML 20ML VIAL IV ONE (07:58)
== END 2024-05-05 09:55 | disposition home or self-care (01) ==
LOC: DAH 06:35 → ENDO 06:35
PROVIDERS: ATTEND Internal Medicine Gastroenterology
DX: K70.31 Alcoholic cirrhosis of liver with ascites (principal); I85.01 Esophageal varices with bleeding; K29.50 Unspecified chronic gastritis without bleeding; K76.6 Portal hypertension; K31.89 Other diseases of stomach and duodenum; F20.9 Schizophrenia, unspecified; F32.A Depression, unspecified; F10.20 Alcohol dependence, uncomplicated; Z79.84 Long term (current) use of oral hypoglycemic drugs; Z79.899 Other long term (current) drug therapy
CPT/HCPCS: 43244; 43239; J7030 ×2; J3490; A4620; A4215 ×2; A4223; A4222; A4221; A4663; A4606; J2704

== ENCOUNTER 2024-06-16 06:43 | Day surgery (SDC) | payer MEDICAID ==
[2024-06-16] VITALS (12 sets, daily range): BP systolic 88–134; BP diastolic 57–94; PULSE 61–79; RESP 15–16; TEMP 97.3–97.7
[~2024-06-16] VITALS: Ht 172.7 cm; Wt 72.6 kg
[~2024-06-16 06:43] MED LIST changes: -INSLAN SQ; +LACT10SO9 PO
[2024-06-16] MEDS: 0.9%NACL 1000ML 1,000 ML IV ONE (07:13)
[2024-06-16] MEDS ORDERED: proPOFol 10 MG/ML 20ML VIAL IV ONE ×2 (09:02)
== END 2024-06-16 10:20 | disposition home or self-care (01) ==
LOC: ENDO 06:43 → DAH 06:43 → ENDO 10:20
PROVIDERS: ATTEND Internal Medicine Gastroenterology
DX: K76.6 Portal hypertension (principal); I85.10 Secondary esophageal varices without bleeding; K31.89 Other diseases of stomach and duodenum; K70.31 Alcoholic cirrhosis of liver with ascites; K22.89 Other specified disease of esophagus; F20.9 Schizophrenia, unspecified; F32.A Depression, unspecified; K76.82 Hepatic encephalopathy; D64.9 Anemia, unspecified; F10.20 Alcohol dependence, uncomplicated; R63.39 Other feeding difficulties; Z79.84 Long term (current) use of oral hypoglycemic drugs; Z79.899 Other long term (current) drug therapy
CPT/HCPCS: 43239; 82948 ×2; J7030; J2704 ×2; A4620; A4215 ×2; A4223; A4222; A4221; A4663; A4606; J3490